=== PATIENT | female | born 1995 | race Caucasian/White ===

== ENCOUNTER 2020-10-08 05:56 | Emergency (ER) | payer OTHER ==
[2020-10-08 08:04] LABS: HEMOGLOBIN 13.7 gm/dl (12.3-15.3); RED BLOOD COUNT 4.6 M/UL (4.00-5.10); WHITE BLOOD COUNT 6.6 K/UL (4.5-11.0)
[2020-10-08 08:21] LABS: BUN/CREATININE RATIO 15 (0-10)
[2020-10-08] MEDS ORDERED: IBUPROFEN600 MG PO (10:00)
== END 2020-10-08 10:13 | disposition home or self-care (01) ==
LOC: ER1 05:56
PROVIDERS: Emergency Medicine
DX: S30.1XXA Contusion of abdominal wall, initial encounter (principal); S20.211A Contusion of right front wall of thorax, initial encounter; R51.9 Headache, unspecified; N83.8 Other noninflammatory disorders of ovary, fallopian tube and broad ligament; F17.200 Nicotine dependence, unspecified, uncomplicated; Z88.0 Allergy status to penicillin; V47.5XXA Car driver injured in collision with fixed or stationary object in traffic accident, initial encounter; Y92.410 Unspecified street and highway as the place of occurrence of the external cause
CPT/HCPCS: 70450; 71260; 73522; 73552; 80053; 81001; 84703; 85025; 99284; Q9967

== ENCOUNTER → 2020-10-11 | Outpatient (CLI) | payer OTHER ==
[~2020-10-11] MED LIST: IBUPROFEN600 MG PO
== END ==
LOC: RAD 14:38
DX: M54.2 Cervicalgia (principal); M54.6 Pain in thoracic spine; M25.511 Pain in right shoulder
CPT/HCPCS: 72040; 72070; 73030